=== PATIENT | male | born 1980 | race Caucasian/White ===

== ENCOUNTER 2017-09-17 14:12 | Emergency (ER) | payer OTHER ==
[~2017-09-17] VITALS: Ht 177.8 cm; Wt 86.2 kg
[~2017-09-17 14:12] MED LIST: KEFLEX500 MG PO; MOTRIN800 MG PO; VICODIN 500 MG-1 TAB PO
[2017-09-17 14:18] VITALS: BP 98/57
== END 2017-09-17 15:32 | disposition home or self-care (01) ==
LOC: ED 14:12
DX: S30.0XXA Contusion of lower back and pelvis, initial encounter (principal); F17.200 Nicotine dependence, unspecified, uncomplicated; V19.9XXA Pedal cyclist (driver) (passenger) injured in unspecified traffic accident, initial encounter; Y93.55 Activity, bike riding; Y92.89 Other specified places as the place of occurrence of the external cause; Y99.8 Other external cause status

== ENCOUNTER 2018-11-28 19:26 | Emergency (ER) | payer OTHER ==
[~2018-11-28] VITALS: Ht 180.3 cm; Wt 90.7 kg
[2018-11-28 19:27] VITALS: BP 137/91
[2018-11-28] MEDS ORDERED: KEFLEX500 M1 PO (20:16)
== END 2018-11-28 20:32 | disposition home or self-care (01) ==
LOC: ED 19:26
DX: S61.216A Laceration without foreign body of right little finger without damage to nail, initial encounter (principal); W20.8XXA Other cause of strike by thrown, projected or falling object, initial encounter; Y93.89 Activity, other specified; Y92.89 Other specified places as the place of occurrence of the external cause; Y99.0 Civilian activity done for income or pay

== ENCOUNTER 2021-01-05 15:34 | Emergency (ER) | payer OTHER ==
[~2021-01-05] VITALS: Ht 177.8 cm; Wt 86.2 kg
[~2021-01-05 15:34] MED LIST changes: +KEFLEX500 M1 PO
[2021-01-05 15:41] VITALS: BP 125/81
[2021-01-05] MEDS ORDERED: IBUPROFEN600 MG PO (16:45)
[2021-01-05] MEDS ORDERED: Tobrex Ophth S2.5 ML OPH (16:45)
== END 2021-01-05 16:47 | disposition home or self-care (01) ==
LOC: ED 15:34
DX: T15.91XA Foreign body on external eye, part unspecified, right eye, initial encounter (principal); Y92.89 Other specified places as the place of occurrence of the external cause

== ENCOUNTER 2021-05-13 08:48 | Emergency (ER) | payer OTHER ==
[~2021-05-13] VITALS: Wt 92.1 kg
[~2021-05-13 08:48] MED LIST changes: +IBUPROFEN600 MG PO; +Tobrex Ophth S2.5 ML OPH
[2021-05-13 09:02] VITALS: BP 133/93
[2021-05-13] MEDS ORDERED: CEPHALEXIN500 M1 PO (11:37)
== END 2021-05-13 11:48 | disposition home or self-care (01) ==
LOC: ED 08:48
DX: L03.114 Cellulitis of left upper limb (principal)

== ENCOUNTER → 2021-05-19 | Outpatient (CLI) | payer OTHER ==
[~2021-05-19] MED LIST changes: +CEPHALEXIN500 M1 PO
== END ==
LOC: WOUNDCARE 05-18 00:51
PROVIDERS: ATTEND Surgery
DX: L02.414 Cutaneous abscess of left upper limb (principal); L03.114 Cellulitis of left upper limb

== ENCOUNTER → 2021-05-26 | Outpatient (CLI) | payer OTHER | LOC: WOUNDCARE 01:25 | PROVIDERS: ATTEND Nurse Practitioner Family | DX: L02.414 Cutaneous abscess of left upper limb (principal); L03.114 Cellulitis of left upper limb ==

== ENCOUNTER → 2021-06-03 | Outpatient (CLI) | payer OTHER | LOC: WOUNDCARE 01:27 | PROVIDERS: ATTEND Nurse Practitioner Family | DX: L02.414 Cutaneous abscess of left upper limb (principal) ==

== ENCOUNTER 2022-03-01 21:21 | Emergency (ER) | payer OTHER | END 2022-03-01 23:56 | disposition left against medical advice (07) | LOC: ED 21:21 | DX: Z53.21 Procedure and treatment not carried out due to patient leaving prior to being seen by health care provider (principal) ==